=== PATIENT | male | born 1970 | race Caucasian/White ===

== ENCOUNTER → 2020-09-02 14:01 | Outpatient (BNVA) | payer OTHER, SELFPAY | PROVIDERS: PCP Nurse Practitioner Family; Referring Provider Nurse Practitioner Family; Visit Provider Internal Medicine | DX: Z13.89 Encounter for screening for other disorder (principal) ==

== ENCOUNTER → 2021-01-03 13:09 | Outpatient (BNVA) | payer OTHER, SELFPAY | PROVIDERS: PCP Nurse Practitioner Family; Visit Provider Internal Medicine | DX: E11.65 Type 2 diabetes mellitus with hyperglycemia (principal); Z79.4 Long term (current) use of insulin; E78.5 Hyperlipidemia, unspecified; E55.9 Vitamin D deficiency, unspecified; E04.9 Nontoxic goiter, unspecified; N52.9 Male erectile dysfunction, unspecified; I10 Essential (primary) hypertension | CPT/HCPCS: 82947; 99212 ==

== ENCOUNTER 2021-01-05 07:40 | Outpatient (REF) | payer OTHER, SELFPAY ==
[2021-01-05 08:39] LABS: Hematocrit 46.5 % (42-52); Hemoglobin 15.2 g/dl (14.0-18.0)
[2021-01-05 09:25] LABS: Free T4 (Free Thyroxine) 1.01 ng/dL (0.71-1.85); Prostate Specific Antigen 0.23 ng/mL (<0.05-4.0); Thyroid Stimulating Hormone 2.55 uIU/mL (0.32-4.0); Vitamin D 25-OH Total 5.4 ng/mL (>30)
[2021-01-05 09:32] LABS: Alanine Aminotransferase 14 U/L (0-40); Albumin Level 3.9 g/dL (3.5-5.0); Alkaline Phosphatase 111 U/L (39-117); Anion Gap 14 (12-20); Aspartate Amino Transferase 16 U/L (5-37); Bilirubin Total 0.9 mg/dL (0.0-1.0); Blood Urea Nitrogen 13 mg/dL (9-16); Calcium 8.9 mg/dL (8.4-10.2); Carbon Dioxide 25 mmol/L (22-29); Chloride 99 mmol/L (96-108); Cholesterol 227 mg/dL; Estimated Glomerular Filt Rate > 60; Glucose Random 454 mg/dL (60-115); HDL Cholesterol 29 mg/dL; LDL Cholesterol Calculated 162 mg/dl; Potassium 4.4 mmol/L (3.3-5.1); Sodium 134 mmol/L (135-145); Total Protein 6.5 g/dL (6.5-8.0); Triglycerides 180 mg/dL
[2021-01-05 09:33] LABS: Creatinine Urine 58.45 mg/dL; Microalbum/Creatinine Ratio Ur 889.6 ug/mg cr
[2021-01-06 03:02] LABS: LDL Cholesterol Direct 180 mg/dL (<100)
[2021-01-06 04:11] LABS: C Peptide 0.76 ng/mL (0.80-3.85)
[2021-01-06 05:22] LABS: Follicle Stimulating Hormone 3.1 mIU/mL (1.6-8.0); Lutenizing Hormone 6.8 mIU/mL (1.5-9.3); Sex Hormone Binding Globulin 51 nmol/L (10-50)
[2021-01-09 16:51] LABS: Glutamic acid decarboxylase Ab >250 IU/mL (<5)
[2021-01-12 15:02] LABS: Testosterone, Free 46.7 pg/mL (35.0-155.0); Testosterone, Total 406 ng/dL (250-1100)
[2021-01-15 09:51] LABS: Islet Cell Antibody Screen NEGATIVE (NEGATIVE)
[2021-01-15 17:51] LABS: Insulinoma associated 2 aatb >350.0 U/mL (<5.4)
== END 2021-01-05 07:41 | disposition home or self-care (01) ==
LOC: HO.LAB 07:40
PROVIDERS: PCP Nurse Practitioner Family; Visit Provider Internal Medicine
DX: Z12.5 Encounter for screening for malignant neoplasm of prostate (principal); E55.9 Vitamin D deficiency, unspecified; E04.9 Nontoxic goiter, unspecified; E11.65 Type 2 diabetes mellitus with hyperglycemia; Z79.4 Long term (current) use of insulin
CPT/HCPCS: 36415; 80053; 80061; 82043; 82306; 83001; 83002; 83721; 84153; 84270; 84402; 84403; 84439; 84443; 84681; 85014; 85018; 86255; 86341

== ENCOUNTER 2021-01-12 12:22 | Outpatient (REF) | payer OTHER, SELFPAY ==
--- NOTE | ~2021-01-12 | US_ITS ---
EXAMINATION: US THYROID CLINICAL INFORMATION: Nontoxic goiter, unspecified COMPARISON: None TECHNIQUE: Linear transducer grayscale and color Doppler examination with attention to the region of the thyroid. FINDINGS: SIZE: Measurements of the thyroid lobes and nodules are given in sagittal, anteroposterior and transverse dimensions respectively. Right Thyroid Lobe: 3.3 x 1.5 x 1.8 cm, volume 4.7 mL. Parenchyma: The gland echotexture is homogeneous. Thyroid vascularity is normal. Left Thyroid Lobe: 2.9 x 1.4 x 1.0 cm, volume 2.1 mL. Parenchyma: The gland echotexture is homogeneous. Thyroid vascularity is normal. Isthmus: 0.7 cm in maximum AP dimension. Estimated total number of nodules greater than or equal to 1 cm: 0. Sugar Controller nodules are described as follows: US/US thyroid IMPRESSION: Prominent thyroid isthmus. No focal nodule seen.
== END 2021-01-12 12:23 | disposition home or self-care (01) ==
LOC: HO.US 12:22
PROVIDERS: Visit Provider Internal Medicine
DX: E04.9 Nontoxic goiter, unspecified (principal)
CPT/HCPCS: 76536

== ENCOUNTER 2021-07-28 16:00 | Outpatient (REF) | payer OTHER, SELFPAY ==
[2021-07-28 16:50] LABS: Blood Urea Nitrogen 16 mg/dL (9-16); Estimated Glomerular Filt Rate > 60
== END 2021-07-28 16:01 | disposition home or self-care (01) ==
LOC: HO.LAB 16:00
PROVIDERS: PCP Nurse Practitioner Family; Visit Provider Radiology Vascular & Interventional Radiology
DX: R79.89 Other specified abnormal findings of blood chemistry (principal); R94.4 Abnormal results of kidney function studies
CPT/HCPCS: 36415; 82565; 84520